=== PATIENT | female | born 1970 | race Caucasian/White ===

== ENCOUNTER 2022-05-17 07:57 | Emergency (ER) | payer BC, SELFPAY ==
[2022-05-17 08:11] VITALS: BP 111/87; PULSE 95; RESP 16; TEMP 36.6; O2SAT 98
--- NOTE | 2022-05-17 09:14 | ED.GENADULT ---
HPI - General Adult General Chief complaint: Unspecified Stated complaint: feeding tube coming out Time Seen by Provider: 05/17/22 08:57 Source: patient Mode of arrival: ambulatory Limitations: no limitations History of Present Illness HPI narrative: Patient is 52 y/o female who presents to the ED with report of G-tube malfunction. Patient reports a history of gastric bypass and pancreatic insufficiency. She had a G-tube placed 9 months ago to receive nutrients. She states the balloon of her tube has malfunctioned or popped at least 2 other times since having it placed. She noticed the tube sliding out this morning, prompting her presentation. Patient had the G-tube placed with a GI specialist in [place], [place]. Patient denies any other issues, nausea, vomiting, abdominal pain, fevers. Related Data Allergies Allergy/AdvReac Type Severity Reaction Status Date / Time adhesive Allergy Unknown Unverified 04/20/14 08:53 adhesive tape Allergy Unknown Hives Verified 01/02/18 15:21 Penicillins Allergy Unknown Verified 03/07/12 21:55 Review of Systems Review of Systems: CONSTITUTIONAL: Denies fever, chills, or sweats. GASTROINTESTINAL: Denies abdominal pain, nausea, vomiting. All systems reviewed & are unremarkable except as noted in HPI and below PMFSH Past Medical History Medical History (Updated 05/17/22 @ 10:10 by Cassie Trotter PA-C) Anxiety, generalized Essential hypertension Iron deficiency anemia, unspecified Major depression, chronic Pancreatic insufficiency Vitamin B12 deficiency Vitamin D deficiency, unspecified Surgical History Surgical History H/O gastric bypass Family History Family History (Updated 01/03/18 @ 07:58 by DOCTOR UNKNOWN) Sibling Patient's sister is in good health Mother Family history of heart disease in male family member before age 55 Hypertension Cerebrovascular accident Family history of malignant neoplasm of breast in first degree relative Social History Social History Smoking status: Heavy tobacco smoker Alcohol intake: current Exam Narrative: GENERAL: Well appearing, well-nourished, non-toxic, in no acute distress. HEAD: Normocephalic, atraumatic. NECK: Supple. No adenopathy, no masses. RESPIRATORY: Airway patent, respirations nonlabored. CARDIOVASCULAR: Regular rate and rhythm without murmurs, rubs, or gallops. Radial pulses 2+ and equal bilaterally. ABDOMINAL: Soft, nontender, nondistended. Normoactive BS. G-tube in the left upper quadrant, in place, but does slide easily in stoma canal. No drainage noted. MUSCULOSKELETAL: Moves all extremities. Strength/ROM intact without gross deformities. SKIN: Warm, dry, normal color. No rashes. NEURO: A&O X3. Speech clear. Cranial nerves II-XII grossly intact. Steady gait. No ataxic movements. PSYCHIATRIC: Appropriate mood and affect. Normal interaction. Course Vital Signs Vital signs: Vital Signs Temperature 97.8 F 05/17/22 08:11 Pulse Rate 95 05/17/22 08:11 Respiratory Rate 16 05/17/22 08:11 Blood Pressure 111/87 05/17/22 08:11 Pulse Oximetry 98 05/17/22 08:11 Temperature 97.8 F 05/17/22 08:11 Pulse Rate 95 05/17/22 08:11 Respiratory Rate 16 05/17/22 08:11 Blood Pressure 111/87 05/17/22 08:11 Pulse Oximetry 98 05/17/22 08:11 Medical Decision Making MDM Narrative Medical decision making narrative: Patient presented to ED with report of G-tube malfunction. G-tube still in place, but balloon seemingly broken and tube able to slide in and out. Patient uses a 24 Australian tube. We do not have that size here in central supply or through the GI Lab. The largest Australian tube we had was 22. I did discuss case with the GI Lab charge nurse who stated we could place a catheter to keep the gastrostomy hole open and they could overnight the correct sized
== END 2022-05-17 10:10 | disposition home or self-care (01) ==
PROVIDERS: Emergency Provider Emergency Medicine
DX: K94.23 Gastrostomy malfunction (principal); I10 Essential (primary) hypertension; D50.9 Iron deficiency anemia, unspecified; K86.89 Other specified diseases of pancreas; E53.8 Deficiency of other specified B group vitamins; E55.9 Vitamin D deficiency, unspecified; Z98.84 Bariatric surgery status; F17.200 Nicotine dependence, unspecified, uncomplicated
CPT/HCPCS: 99282; 99284

== ENCOUNTER 2022-12-15 14:57 | Outpatient (CLI) | payer BC, SELFPAY ==
--- NOTE | ~2022-12-15 | MM_ITS ---
EXAMINATION: MM screening shayy BI w jeannine HISTORY: Screening mammogram TECHNIQUE: Craniocaudal and mediolateral oblique 3-D tomosynthesis images were obtained and synthetic 2-D images were generated. CAD analysis was submitted and interpreted. COMPARISON: December 05, 2017 bilateral diagnostic mammogram BREAST PARENCHYMAL COMPOSITION: There are scattered areas of fibroglandular density. FINDINGS: There is no evidence of suspicious mass, calcification, or architectural distortion to sugg est malignancy in either breast. There has been no suspicious interval change. IMPRESSION: 1. No mammographic evidence of malignancy. 2. Recommend routine screening mammography in one year. BI-RADS Category 1: Negative Reviewed, dictated and finalized at location B.
== END 2022-12-15 14:58 | disposition home or self-care (01) ==
PROVIDERS: Visit Provider Nurse Practitioner
DX: Z12.31 Encounter for screening mammogram for malignant neoplasm of breast (principal)
CPT/HCPCS: 77063; 77067

== ENCOUNTER 2023-07-26 01:05 | Day surgery (SDC) | payer BC, SELFPAY ==
[2023-07-15 11:17] VITALS: BMI 30.4
--- NOTE | 2023-07-15 11:26 | PC.NURSE ---
Report to the Outpatient Waiting Room, entrance under the green pavilion located off [facility], at time 7:00 on date 07/26/23. Planned Procedure Time: 9:00. Time changes happen often and if your time is changed the preop area will call you the afternoon before. - You and your visitor will be asked to self-screen and do not enter if you have any COVID symptoms. - A mask is optional within the hospital at this time. Patients may have clear liquids (water, carbonated beverages, clear teas, apple juice) until 3 hours prior to surgery (6:00) with a maximum of 20 ounces. - No food from midnight until time of surgery Take the following medications with a SIP of water the morning of surgery: BACLOFEN AND PAIN PILL IF NEEDED DO NOT STOP ANY OF YOUR OTHER PRESCRIPTION MEDICATIONS PRIOR TO SURGERY ?EXCEPT THE FOLLOWING Medications to discontinue per physician: N/A (PER PT, UNABLE TO D/C VITAMINS DUE TO HEALTH CONDITIONS) Date to take last dose: N/A Please no make-up, nail tuvaluan, hairspray, perfume, deodorant, or body powder the day of surgery. No jewelry (including any body piercings) or valuables the day of surgery, leave them at home. Please take a shower or bath the night before, or the morning of, surgery with an antibacterial soap. Wear comfortable, loose fitting clothing. - Jewelry must be removed prior to entering the operating room. Rings and piercings that are not removed may be cut off. - The hospital will not accept responsibility for valuables. - Please leave all valuables, including medications, at home the day of surgery. If you are going home after surgery, a licensed medical van driver must drive you home. - NO public transportation without another adult if you receive anesthesia. - We recommend that an adult stay with you for 24 hours following discharge. - We also recommend that you do not drive, make important decision, drink alcoholic beverages, or take any drugs that were not prescribed by your health care provider for at least 24 hours after your discharge time. Follow any additional instructions given to you from your surgeon. If you or anyone in your household have experienced Covid symptoms in the past week, please notify your surgeon or the nurse liaison at the phone number below for possible testing. Telephone instructions given to PT - FRAN BYRD and asked if any additional questions and then verbalized understanding. Patient advised to call surgeon office or pre surgery nurse liaison [phone] if any additional questions.
[2023-07-26] VITALS (9 sets, daily range): BP systolic 111–164; BP diastolic 61–98; PULSE 59–90; RESP 14–18; TEMP 36.1–36.8; O2SAT 92–100
[2023-07-26] MEDS: LACTATED RINGERS 1,000 ML 30 ML IV CONT ×2 (07:20→11:22)
[2023-07-26] MEDS: ACETAMINOPHEN 500 MG TABLET 1000 MG PO (07:20)
[2023-07-26] MEDS: KETOROLAC 15 MG/ML VIAL (*BKC) IV PUSH (07:20)
[2023-07-26 07:34] LABS: Alanine Aminotransferase 33 U/L (6-35); Albumin Level 4.1 g/dL (3.5-5.1); Alkaline Phosphatase 88 U/L (38-126); Anion Gap 10 mmol/L (8-16); Aspartate Amino Transferase 74 U/L (14-36); Bilirubin,Total 0.4 mg/dL (0.2-1.3); Blood Urea Nitrogen 12 mg/dL (7-17); Calcium 8.7 mg/dL (8.4-10.2); Carbon Dioxide 22 mmol/L (22-30); Chloride 108 mmol/L (98-107); Estimated CRCL calculation 84 ml/min; Estimated Glomerular Filt Rate > 60; Glucose 89 mg/dL (65-110); Potassium 3.9 mmol/L (3.4-5.0); Sodium 140 mmol/L (137-145)
[2023-07-26 07:38] LABS: Basophils Percent Auto 0.2 % (0.2-1.2); Eosinophils Absolute Auto 0.1 K/mm3 (0-0.3); Hematocrit 39.8 % (37.0-47.0); Hemoglobin 12.8 g/dL (12.0-15.0); Immature Granulocyte Absolute 0.02 K/mm3 (0.00-0.031); Immature Granulocyte Percent A 0.4 % (0-0.5); Lymphocytes Absolute Auto 1.35 K/mm3 (0.9-3.2); Mean Corpuscular HGB Conc 32.2 g/dl (32-36); Mean Corpuscular Hemoglobin 32.7 pg (26-34); Mean Corpuscular Volume 101.8 fl (80-100); Mean Platelet Volume 10.2 fl (7.4-10.4); Monocytes Absolute Auto 0.2 K/mm3 (0.1-0.6); Monocytes Percent Auto 3.7 % (2.6-8.5); Neutrophils Absolute Auto 3.9 K/mm3 (1.3-6.7); Neutrophils Percent Auto 69.7 % (45.5-73.1); Platelet Count Result 217 k/mm3 (150-375); Red Blood Count 3.91 M/mm3 (4.2-5.4); Red Cell Distribution Width 12.5 % (11.5-14.5); White Blood Count 5.6 K/mm3 (4.5-10.0)
--- NOTE | 2023-07-26 08:10 | WPDANESEPPF ---
Anes - Initial Pre Proc Eval Procedure: Operation Date: 07/26/23 08:15 Proposed Procedures p Total Laparoscopic Hysterectomy with Bilateral Salpingo-oophorectomy - aMtthew Miller MD Date/Time: 07/26/23 08:10 Surgeon: Matthew Miller MD Pre Op Diagnosis: Cervical Intraepithelial Neoplasia Grade II Patient Data Age: 53 Gender: F Height: 1.73 m Weight: 91.1 kg Last Vital Signs Temp 97.1 F L 07/26/23 07:20 Pulse 77 07/26/23 07:20 Resp 14 07/26/23 07:20 BP 132/71 07/26/23 07:20 Pulse Ox 97 07/26/23 07:20 O2 Del Method Room Air 07/26/23 07:20 Allergies Allergy/AdvReac Type Severity Reaction Status Date / Time adhesive tape Allergy Unknown Hives Verified 07/26/23 07:33 Penicillins Allergy Unknown Hives Verified 07/26/23 07:33 Home Medications Medication Instructions Recorded Confirmed Type baclofen 10 mg tablet 10 mg PO BID 07/15/23 07/15/23 History ferrous sulfate 325 mg (65 mg 325 mg PO DAILY 07/15/23 07/15/23 History iron) tablet (Iron (ferrous sulfate)) fluoxetine 40 mg capsule 40 mg PO HS 07/15/23 07/15/23 History folic acid 1 mg tablet 1 mg PO DAILY 07/15/23 07/15/23 History furosemide 40 mg tablet 40 mg PO DAILY 07/15/23 07/15/23 History hydrocodone 5 mg-acetaminophen 325 1 tablet PO BID 07/15/23 07/15/23 History mg tablet lipase 3,000-protease 4 cap PO TID 07/15/23 07/15/23 History 9,500-amylase 15,000 unit capsule, delayed rel (Creon) Laboratory Tests 07/26/23 07:01 WBC 5.6 K/mm3 (4.5-10.0) RBC 3.91 L M/mm3 (4.2-5.4) Hgb 12.8 g/dL (12.0-15.0) Hct 39.8 % (37.0-47.0) MCV 101.8 H fl (80-100) MCH 32.7 pg (26-34) MCHC 32.2 g/dl (32-36) RDW 12.5 % (11.5-14.5) Plt Count 217 k/mm3 (150-375) MPV 10.2 fl (7.4-10.4) Immature Gran % (Auto) 0.4 % (0-0.5) Neut % (Auto) 69.7 % (45.5-73.1) Lymph % (Auto) 24.0 % (18.3-44.2) [place] % (Auto) 3.7 % (2.6-8.5) Eos % (Auto) 2.0 % (0-4.4) Baso % (Auto) 0.2 % (0.2-1.2) Lymph # (Auto) 1.35 K/mm3 (0.9-3.2) [place] # (Auto) 0.2 K/mm3 (0.1-0.6) Eos # (Auto) 0.1 K/mm3 (0-0.3) Baso # (Auto) 0.0 K/mm3 (0.0-0.1) Abs Immat Gran (auto) 0.02 K/mm3 (0.00-0.031) Absolute Neuts (auto) 3.9 K/mm3 (1.3-6.7) Absolute Nucleated RBC 0.0 K/mm3 (0.0-0.012) Nucleated RBC % 0.0 % (0.0-0.2) Sodium 140 mmol/L (137-145) Potassium 3.9 mmol/L (3.4-5.0) Chloride 108 H mmol/L (98-107) Carbon Dioxide 22 mmol/L (22-30) Anion Gap 10 mmol/L (8-16) BUN 12 mg/dL (7-17) Creatinine 0.80 mg/dL (0.7-1.0) Estim Creat Clear Calc 84 ml/min Estimated GFR > 60 (59 - ) Glucose 89 mg/dL (65-110) Calcium 8.7 mg/dL (8.4-10.2) Total Bilirubin 0.4 mg/dL (0.2-1.3) AST 74 H U/L (14-36) ALT 33 U/L (6-35) Alkaline Phosphatase 88 U/L (38-126) Total Protein 7.0 g/dL (6.3-8.2) Albumin 4.1 g/dL (3.5-5.1) Blood Type O Negative Antibody Screen Pending Patient hx anesthesia problems: none Family hx anesthesia problems: none Results Review: All pre-operative results and documents have been reviewed as part of the pre-operative evaluation. [facility] Past Medical History Medical History (Updated 05/18/22 @ 00:00 by Mariola Mason) Anxiety, generalized Essential hypertension Iron deficiency anemia, unspecified Major depression, chronic Pancreatic insufficiency Vitamin B12 deficiency Vitamin D deficiency, unspecified Surgical History Surgical History H/O gastric bypass Family History Family History (Updated 01/03/18 @ 07:58 by DOCTOR UNKNOWN) Sibling Patient's sister is in good health Mother Family history of heart disease in male family member before age 55 Hypertension Cerebrovascular accident Family history of malignant neoplasm of breast in
--- NOTE | 2023-07-26 08:27 | WPDHPUPDATE1 ---
History and Physical Update Update Date/Time: 07/26/23 08:27 History and Physical has been reviewed, including an updated exam of the patient. There are NO changes in the patient's condition. Risks, benefits, and alternatives have been discussed and questions answered. Patient agrees to proceed with procedure.
[2023-07-26] MEDS: ceFAZolin 2 GM/D5W 50 ML 2 GM/50 ML BAG IVPB (08:34)
[2023-07-26] MEDS: ceFAZolin SODIUM 1 GM VIAL XX (09:25)
--- NOTE | 2023-07-26 11:35 | W.PM.PROC2 ---
Procedure Note - Detailed Date of Procedure 07/26/23 Pre-op Diagnosis Cervical Intraepithelial Neoplasia Grade II Post-op Diagnosis Same Procedure Performed Total laparoscopic hysterectomy and bilateral salpingo-oophorectomy. Surgeon Matthew Miller MD Anesthesia General Indications Recurrent severe dysplasia Findings scarred cervix flush with the vagina stenotic intracervical canal, normal-appearing uterus tubes and ovaries With inflammation scarring in the paracervical tissue. Description of Procedure This patient was taken to the operating room. She was prepped and draped in the dorsal lithotomy position after induction of general anesthesia. The uterine manipulator and Sandra cup were placed. This was done with a speculum and tenaculum. The speculum was placed. The cervix was grasped with a tenaculum. The stay sutures were placed at 3 and 9:00 a.m.. The stay sutures of 0 Vicryl were brought through the appropriately sized Sandra cup. The tip of the KING manipulator was placed in the intrauterine cavity. The cup was slid into place around the cervix and into the fornices. It was locked into place. The sutures were then wrapped around the handle and tied under tension. A 5 mm skin incision was made in the left upper quadrant the abdomen. A 5 mm trocar was inserted into the intrauterine cavity under direct visualization of the scope. Pneumoperitoneum was achieved. A left lower quadrant 11 mm incision was made with scalpel. An 11 mm trocar was inserted into the anterior abdominal cavity under direct visualization the scope. A 5 mm infraumbilical incision was made with a scalpel and a 5 mm trocar was inserted the intra-abdominal cavity under direct visualization of the scope. Bilateral ureteral lysis was performed. This was done from the pelvic brim down to the uterine artery. This was done with careful dissection using sharp and blunt dissection. The infundibulopelvic ligaments were isolated after identification of the ureters bilaterally. These infundibulopelvic ligaments were cauterized and transected with LigaSure cautery. The para ovarian tissue was cauterized and transected with LigaSure cautery bilaterally. Moving around the ovary into the broad ligament the tissue was cauterized transected with LigaSure cautery. The round ligaments were cauterized transected with LigaSure cautery this was all done in a bilateral fashion. In a stepwise fashion along the lateral aspects of the uterus the round ligament and broad ligaments were cauterized transected down to the level of the uterine arteries. A bladder flap was created in the bladder was moved distally to the end of the cervix and over the Sandra cup. The bilateral uterine arteries were cauterized and transected. Colpotomy was then performed. In a circumferential fashion the vagina was transected using unipolar cautery. The incision was made down on the Sandra cup. The uterus, cervix, fallopian tubes and ovaries were taken out through the vagina. A pneumo occluder was placed in the vagina. The vaginal cuff was closed with a 0 V lock suture in a running fashion. The pelvis was irrigated with copious amounts antibiotic irrigation. The ureters were again examined and found to be intact and flowing freely under the uterine arteries into the bladder. The bladder was intact. It was examined directly. The vagina was irrigated with Betadine solution after removal of the Pneumo occluder. The patient was taken to recovery room. She was stable condition. Sponge lap and needle counts were correct x2. Estimated Blood Loss 100 Urine Output -300.0 Drains Yes Packing No Pathology Yes Complications No immediate complications Condition Stable Disposition Floor
[2023-07-26] MEDS: DEXTROSE 5%/0.45% SOD CHL 1,000 ML 125 ML IV CONT (12:30)
[2023-07-26] MEDS: KETOROLAC 30 MG/ML VIAL (*BKC) IV PUSH (12:30)
[2023-07-26] MEDS: ONDANSETRON INJ 4 MG/2 ML VIAL IV PUSH (12:30)
[2023-07-26] MEDS: BACLOFEN 10 MG TABLET PO (17:05)
[2023-07-26] MEDS: SIMETHICONE 80 MG TAB.CHEW PO (17:05)
[2023-07-26] MEDS: Acetaminophen/HYDROcodone ELIXIR (*CRX) 7.5 MG/15 ML UDC 10 MG PO (17:05)
[2023-07-26] MEDS: LIPASE/AMYLASE/PROTEASE 12,000 UNITS CAP 1 CAP PO (18:00)
[2023-07-26] MEDS: FLUoxetine HCL 20 MG CAPSULE 40 MG PO (23:01)
[2023-07-27] MEDS: IBUPROFEN SUSPENSION 200 MG/10 ML UDC 600 MG PO (02:33)
[2023-07-27 05:07] VITALS: BP 124/78; PULSE 81; RESP 16; TEMP 36.8; O2SAT 94
[2023-07-27] MEDS: BACLOFEN 10 MG TABLET PO (07:54)
[2023-07-27] MEDS: Acetaminophen/HYDROcodone ELIXIR (*CRX) 7.5 MG/15 ML UDC 5 MG PO (07:54)
[2023-07-27] MEDS: LIPASE/AMYLASE/PROTEASE 12,000 UNITS CAP 1 CAP PO (07:55)
--- NOTE | 2023-07-27 08:32 | PM.GYNPNOP ---
FILM PROCESSING SUPERVISOR - A/P Postoperative Procedures: Procedures Operation Date: 07/26/23 08:15 Actual Procedure Side Surgeon p Total Laparoscopic Hysterectomy with Bilateral Salpingo-oophorectomy Not Applicable Matthew Miller MD Postoperative day: 1 Postoperative status: doing well Postoperative plan: see orders Time Spent With Patient Time: Total time spent is greater than 50% in coordination of care (as documented) at patient's floor/unit and/or counseling patient: Time with patient: less than 15 minutes FILM PROCESSING SUPERVISOR- PN:Subj Post-Op Subjective Date/time seen: 07/27/23 08:32 Subjective: patient reports feeling better, patient has no complaints and pain is well controlled Exam Const: General: healthy appearing, comfortable and no acute distress Resp: Auscultation: clear to auscultation bilaterally, no rales, no rhonchi and no wheezes Cardio: Rate: regular rate Heart sounds: no click, no murmurs and no rubs GI: Inspection: non-distended Auscultation: normal bowel sounds Extrem: General: normal to inspection, no pedal edema and no calf tenderness FILM PROCESSING SUPERVISOR - PN: Obj Data Vital Signs Vital Signs: Vital Signs - 24 hr 07/26/23 11:22 07/26/23 11:35 07/26/23 11:50 Temperature 98.2 F Pulse Rate 59 L 72 84 Respiratory Rate 14 16 14 Blood Pressure 164/88 H 142/98 H 135/76 Pulse Oximetry 100 94 98 Oxygen Delivery Simple Face Mask Nasal Cannula Nasal Cannula Oxygen Flow Rate 8 2 2 07/26/23 12:05 07/26/23 12:20 07/26/23 12:53 Temperature 96.9 F L Pulse Rate 75 72 66 Respiratory Rate 16 14 18 Blood Pressure 136/74 140/72 153/81 H Pulse Oximetry 99 100 100 Oxygen Delivery Nasal Cannula Nasal Cannula Oxygen Flow Rate 2 2 07/26/23 19:40 07/26/23 19:40 07/26/23 23:05 Temperature 98.2 F 98 F Pulse Rate 90 86 Respiratory Rate 14 14 Blood Pressure 111/61 118/73 Pulse Oximetry 92 93 Oxygen Delivery Room Air Oxygen Flow Rate 07/26/23 23:05 07/27/23 05:07 07/27/23 05:07 Temperature 98.2 F Pulse Rate 81 Respiratory Rate 16 Blood Pressure 124/78 Pulse Oximetry 94 Oxygen Delivery Room Air Room Air Oxygen Flow Rate Intake/Output Intake/Output: Intake & Output 07/24/23 07/25/23 07/26/23 07/27/23 23:59 23:59 23:59 23:59 Intake Total 540 100 Output Total 550 300 Balance -10 -200 Meds/Results Medications: Active Medications Generic Name Dose Route Start Last Admin Trade Name Freq PRN Reason Stop Dose Admin Hydrocodone Bitart/Acetaminophen 5 mg 07/26/23 16:37 07/27/23 07:54 Acetaminophen/Hydrocodone Elixir (*Crx) 7.5 Mg/15 Ml Udc PO 5 mg Q3H PRN Administration Pain Rated 5 or Less Hydrocodone Bitart/Acetaminophen 10 mg 07/26/23 16:40 07/26/23 17:05 Acetaminophen/Hydrocodone Elixir (*Crx) 7.5 Mg/15 Ml Udc PO 10 mg Q3H PRN Administration Pain Rated 6 or Greater Lipase/Protease/Amylase 1 cap 07/26/23 13:00 07/27/23 07:55 Lipase/Amylase/Protease 12,000 Units Cap PO 08/25/23 12:59 1 cap TID JOSE Administration Baclofen 10 mg 07/26/23 17:00 07/27/23 07:54 Baclofen 10 Mg Tablet PO 10 mg BID JOSE Administration Fluoxetine HCl 40 mg 07/26/23 21:00 07/26/23 23:01 Fluoxetine Hcl 20 Mg Capsule PO 40 mg HS JOSE Administration Furosemide 40 mg 07/27/23 09:00 Furosemide Oral Soln 40 Mg/4 Ml PO DAILY JOSE Ibuprofen 600 mg 07/26/23 14:24 07/27/23 02:33 Ibuprofen Suspension 200 Mg/10 Ml Udc PO 600 mg Q6H PRN Administration Cramping Ketorolac Tromethamine 30 mg 07/26/23 12:26 07/26/23 12:30 Ketorolac 30 Mg/Ml Vial (*Bkc) IV PUSH 07/31/23 12:25 30 mg Q6H PRN Administration Pain Rated 4-6 Naloxone HCl 0.1 mg 07/26/23 12:26 Naloxone Hcl 0.4 Mg/Ml Vial IV PUSH Q2M PRN Respiratory rate less than 10 Ondansetron HCl 4 mg 07/26/23 12:26 07/26/23 12:30 Ondansetron Inj 4 Mg/2 Ml Vial IV PUSH 4 mg Q6H PRN Administration Nausea And Vomiting Simethicone 80 mg 11
--- NOTE | 2023-07-27 08:56 | WPDANESPN ---
Anes - Prog Note Post-Op Date/Time: 07/27/23 08:56 Cardiovascular status: normal Respiratory status: normal Airway patency: baseline Mental status: baseline Post-Op hydration status: normal Vital Signs: Last Vital Signs Temp 36.8 C 07/27/23 05:07 Pulse 81 07/27/23 05:07 Resp 16 07/27/23 05:07 BP 124/78 07/27/23 05:07 Pulse Ox 94 07/27/23 05:07 O2 Del Method Room Air 07/27/23 05:07 O2 Flow Rate 2 07/26/23 12:20 Pain Score (VAS): 2 I/O: Intake & Output 07/26/23 07/27/23 07/27/23 23:59 07:59 15:59 Intake Total 290 100 Output Total 500 300 Balance -210 -200 Laboratory Tests 07/26/23 07:01 07/26/23 07:01 Post-procedural complaints: none Patient Feedback: Patient satisfied with anesthetic care.
[2023-07-27 08:57] VITALS: BP 133/84; PULSE 88; RESP 16; TEMP 36.7; O2SAT 96
== END 2023-07-27 10:30 | disposition home or self-care (01) ==
LOC: ANHSURGERY 06:18 → ANHOB2 12:28
PROVIDERS: Visit Provider Obstetrics & Gynecology
PROC: 0UT9FZZ Resection of Uterus, Via Natural or Artificial Opening With Percutaneous Endoscopic Assistance (ICD-10-PCS; CPT 58571; principal; 2023-07-26 08:15)
DX: N87.1 Moderate cervical dysplasia (principal); I10 Essential (primary) hypertension; E53.8 Deficiency of other specified B group vitamins; D50.9 Iron deficiency anemia, unspecified; F41.1 Generalized anxiety disorder; F33.9 Major depressive disorder, recurrent, unspecified; Z79.891 Long term (current) use of opiate analgesic; Z98.84 Bariatric surgery status; F17.210 Nicotine dependence, cigarettes, uncomplicated; E66.9 Obesity, unspecified; Z68.30 Body mass index [BMI] 30.0-30.9, adult
CPT/HCPCS: 58571; 36415; 80053; 85025; 86850; 86900; 86901; 88307; 99199; A9270; J0690; J1100; J1170; J1885; J2250; J2405; J2704; J3010; J7030; J7120